=== PATIENT | female | born 1970 | race American Indian/Alaskan Native ===

== ENCOUNTER 2016-11-01 10:01 | Emergency (ER) | payer MEDICAID ==
[2016-11-01] MEDS ORDERED: ZESTRIL PO ONE (12:08)
[2016-11-01] MEDS ORDERED: DECADRON IM ONE (12:08)
[2016-11-01] MEDS ORDERED: TORADOL IM ONE (12:08)
[2016-11-01 12:37] VITALS: BP 172/97
--- NOTE | 2016-11-01 13:04 | Emergency Department Report ---
Entered by GREGORIO RINCON, acting as scribe for ROSARIO LALEN PA. Upper Extremity - HPI Chief Complaint: Shoulder Injury Stated Complaint: RT SHOULDER PAIN/REFILL BP MED Upper Extremity: Right Shoulder (pain with limited ROM) Occurred When: >5 Days (pain recurrent and occured over the few months) Mechanism: Unsure (chronic pain) Severity: severe Symptoms: Yes Pain with Movement (R shoulder), Yes Limited Range of Movement ( right shoulder), No Deformity, No Numbness, No Weakness, No Swelling, No Bruising/Ecchymosis, No Laceration or Abrasion Other History: 46 y/o female patient presents for evaluation of 810 aching right shoulder that started a few days ago while at work. She reports pain on and off for the past month. Pain is worse with movement. She is conerned she pulled a muscle. States pain is due to heavy lifting. No trauma or fall reported. Also is requsting a refill on bp meds (Lisinopril 20 mg). ED Review of Systems ROS: Stated complaint: RT SHOULDER PAIN/REFILL BP MED Other details as noted in HPI Comment: All other systems reviewed and negative Constitutional: no symptoms reported Respiratory: no symptoms reported Cardiovascular: denies: chest pain, palpitations, edema, syncope Gastrointestinal: denies: abdominal pain, nausea, vomiting Musculoskeletal: arthralgia. denies: back pain, joint swelling, myalgia Skin: denies: rash Neurological: denies: headache, weakness, numbness, paresthesias Other: All requesting medication refill Lisinopril 20 mg ED Past Medical Hx - Past Medical History Previous Medical History?: Yes Hx Hypertension: Yes Hx Diabetes: Yes - Surgical History Past Surgical History?: Yes Additional Surgical History: - Family History Family history: hypertension - Social History Smoking Status: Never Smoker Substance Use Type: Alcohol, Prescribed - Medications Home Medications: Home Medications Medication Instructions Recorded Confirmed Last Taken Type Azithromycin [Zithromax] 250 mg PO DAILY #6 tablet 06/01/16 Unknown Rx Metformin HCl [Glucophage] 1,000 mg PO BID 06/01/16 06/01/16 05/31/16 History glipiZIDE [Glucotrol] 10 mg PO BID 06/01/16 06/01/16 05/31/16 History Lisinopril [Zestril TAB] 20 mg PO QDAY #30 tablet 11/01/16 Unknown Rx methOCARBAMOL [Robaxin TAB] 500 mg PO BID #20 tab 11/01/16 Unknown Rx traMADol [Ultram] 50 mg PO Q6HR PRN #20 tablet 11/01/16 Unknown Rx Upper Extremity Exam - Exam General: Vital signs noted. No distress. Alert and acting appropriately. 46 y/.o female pti in no acute distress, well appearing. Head and Torso: No HEENT Abnormality (normal exam), No Neck Tenderness (NL EXAM) , No Chest/Lungs Abnormality (normal exam), No Abdominal Tenderness (normal exam ), No Back Tenderness (NL exam) Shoulder Exam: Yes Shoulder Tenderness (right,TTP glandular molar joint), No Clavicle Tenderness, No Normal Range of Motion in Shoulder (limited ROM to right shoulder. Due to pain), No Shoulder Deformity, No AC Joint Tenderness Arm Exam: No Arm/Humerus Tenderness, No Arm Deformity Elbow: Yes Normal Range of Motion in Elbow, No Elbow Tenderness, No Elbow Deformity Forearm: No Forearm Tenderness, No Forearm Deformity, No Pain with Pronation, No Pain with Supination Wrist: Yes Normal ROM in Wrist, No Wrist Tenderness, No Wrist Deformity, No Snuffbox Tenderness, No Pain with Axial Thumb Compression Hand: Yes Normal ROM in Digit(s), No Hand Tenderness, No Hand Deformity, No Digit Tenderness, No Digit(s) Deformity, No Tendon Dysfunction CMS Exam: Yes Normal Distal Pulses, Yes Normal Capillary Refill, Yes Normal Distal Sensation, No Broken Skin ED Course Vital Signs 11/01/16 10:08 Temperature 98.1 F Pulse Rate 88 Respiratory 16 Rate Blood Pressure 186/102 O2 Sat by Pulse 100 Oximetry - Reevaluation(s) Reevaluation #1: 11/01/16 12:54 Patient given Decadron 10 mg IM and Toradol 60 mg IM in the emergency room for right shoulder pain. ED Medical Decision Making - Medical Decision Making ED Course: She'll with arthralgia right shoulder. She says she's been having shoulder pain on and off for a while but she was doing some work around the house and aggravated her shoulder. Discussed with her that she needs to follow- up with orthopedic doctor for further imaging of her right shoulder. Patient was given Toradol 60 mg IM and Decadron 10 mg IM for shoulder pain. She was also request then refill on lisinopril for high blood pressure. Pressure was elevated in emergency room. She was given lisinopril 20 mg prior to discharge. Discharged home in stable condition with prescription for naproxen and lisinopril. Critical care attestation.: If time is entered above; I have spent that time in minutes in the direct care of this critically ill patient, excluding procedure time. ED Disposition Clinical Impression: Arthralgia of right shoulder region, Encounter for medication refill Chronic shoulder pain Qualifiers: Laterality: right Qualified Code(s): M25.511 - Pain in right shoulder; G89.29 - Other chronic pain Hypertension Qualifiers: Hypertension type: essential hypertension Qualified Code(s): I10 - Essential ( primary) hypertension Disposition: DISCHARGED TO HOME OR SELFCARE Is pt being admited?: No Does the pt Need Aspirin: No Condition: Stable Instructions: Hypertension (ED), Arthralgia (ED) Additional Instructions: Please follow up with orthopedic doctor for chronic right shoulder pain Please follow up with your primary care doctor regarding your elevated blood pressure and medication refill. If you do not have a primary care doctor, you can follow-up at this outside Medical Center for management of chronic medical problems. Prescriptions: Lisinopril [Zestril TAB] 20 mg PO QDAY #30 tablet methOCARBAMOL [Robaxin TAB] 500 mg PO BID #20 tab traMADol [Ultram] 50 mg PO Q6HR PRN #20 tablet PRN Reason: Pain Referrals: PRIMARY CARE, [Primary Care Provider] - 2-3 Days [facility] [Outside] - 2-3 Days [facility] [Other] - 3-5 Days Forms: Accompanied Note, Work/School Release Form(ED) This documentation as recorded by the SERGEY carpenter SHALANE,accurately reflects the service I personally performed and the decisions made by me,ROSARIO ALLEN PA.
== END 2016-11-01 13:08 | disposition home or self-care (01) ==
LOC: ED 10:01
DX: M25.511 Pain in right shoulder (principal); G89.29 Other chronic pain; I10 Essential (primary) hypertension; E11.9 Type 2 diabetes mellitus without complications
CPT/HCPCS: 96372; 99282; J1100; J1885

== ENCOUNTER 2017-07-01 04:12 | Emergency (ER) | payer MEDICAID ==
[2017-07-01 05:39] LABS: Hemoglobin 10.2 gm/dl (10.1-14.3); Mean Corpuscular HGB Conc 33 % (30-34); Mean Corpuscular Volume 78 fl (79-97); Platelet Count 537 K/mm3 (140-440); Red Blood Count 3.97 M/mm3 (3.65-5.03); Red Cell Distribution Width 14.3 % (13.2-15.2)
[2017-07-01 05:45] LABS: Mean Corpuscular Hemoglobin 26 pg (28-32)
[2017-07-01 06:05] LABS: Alanine Aminotransferase 17 units/L (7-56); Albumin 3.3 g/dL (3.9-5); BUN/Creatinine Ratio 13; Blood Urea Nitrogen 8 mg/dL (7-17); Calcium 8.8 mg/dL (8.4-10.2); Hemolysis Index 0
[2017-07-01 06:31] LABS: Band Neutrophils # (Manual) 0.7 K/mm3; Basophils % (Manual) 0 % (0.0-1.8); Total Cells Counted 100
[2017-07-01 06:32] LABS: Hypochromasia 1+; Platelet Estimate Appears Increased
[2017-07-01 06:59] LABS: Bilirubin,Urine NEG (Negative); Blood,Urine SM (Negative); Color,Urine Yellow (Yellow); Mucus,Urine FEW /HPF; Nitrite,Urine NEG (Negative); Urobilinogen,Urine < 2.0 mg/dL (<2.0)
[2017-07-01 20:48] VITALS: BP 147/86
[2017-07-01] MEDS ORDERED: NORCO 5/325 PO ONE (22:46)
--- NOTE | 2017-07-01 22:47 | Emergency Department Report ---
HPI - General Chief Complaint: Abdominal Pain Time Seen by Provider: 07/01/17 22:17 - HPI HPI: This is a 47-year-old female presents to the emergency department by EMS from home at about 2:30 in the morning with complaint of right lower quadrant abdominal pain. It started just prior to presentation but the patient was dealing with it intermittently over the past week. She denies any nausea, vomiting, dysuria, vaginal bleeding or discharge, fever. She has not taken anything for her symptoms prior to presentation. No recent travel or sick contacts at home. She has a past medical history of non-insulin dependent diabetes and hypertension. She has a previous surgical history of a . ED Past Medical Hx - Past Medical History Previous Medical History?: Yes Hx Hypertension: Yes Hx Diabetes: Yes - Surgical History Past Surgical History?: Yes Additional Surgical History: - Social History Smoking Status: Never Smoker Substance Use Type: None - Medications Home Medications: Home Medications Medication Instructions Recorded Confirmed Last Taken Type Azithromycin [Zithromax] 250 mg PO DAILY #6 tablet 06/01/16 Unknown Rx Metformin HCl [Glucophage] 1,000 mg PO BID 06/01/16 06/01/16 05/31/16 History glipiZIDE [Glucotrol] 10 mg PO BID 06/01/16 06/01/16 05/31/16 History Lisinopril [Zestril TAB] 20 mg PO QDAY #30 tablet 11/01/16 Unknown Rx methOCARBAMOL [Robaxin TAB] 500 mg PO BID #20 tab 11/01/16 Unknown Rx traMADol [Ultram] 50 mg PO Q6HR PRN #20 tablet 11/01/16 Unknown Rx Ciprofloxacin HCl [Cipro] 500 mg PO BID #10 tablet 07/02/17 Unknown Rx HYDROcodone/APAP 5-325 [[place] 1 each PO Q6HR PRN #10 tablet 07/02/17 Unknown Rx 5/325] Tamsulosin [Flomax] 0.4 mg PO QDAY #4 cap 07/02/17 Unknown Rx ED Review of Systems ROS: Stated complaint: ABDOMINAL PAIN Other details as noted in HPI Comment: All other systems reviewed and negative Constitutional: denies: chills, fever Eyes: denies: eye pain, eye discharge, vision change ENT: denies: ear pain, throat pain Respiratory: denies: cough, shortness of breath, wheezing Cardiovascular: denies: chest pain, palpitations Gastrointestinal: abdominal pain. denies: nausea, vomiting Genitourinary: denies: urgency, dysuria, discharge Musculoskeletal: denies: back pain, joint swelling, arthralgia Skin: denies: rash, lesions Neurological: denies: headache, weakness, paresthesias Physical Exam - Physical Exam Vital Signs: Vital Signs 07/01/17 07/01/17 05:15 20:47 Temperature 98.9 F 98.9 F Pulse Rate 93 H 89 Respiratory 17 16 Rate Blood Pressure 151/71 Blood Pressure 147/86 [Right] O2 Sat by Pulse 96 99 Oximetry Physical Exam: GENERAL: The patient is well-developed well-nourished. HENT: Normocephalic. Atraumatic. Patient has moist mucous membranes. EYES: Extraocular motions are intact. Pupils equal reactive to light bilaterally. NECK: Supple. Trachea is midline. CHEST/LUNGS: Clear to auscultation. There is no respiratory distress noted. HEART/CARDIOVASCULAR: Regular. There is no tachycardia. There is no murmur. ABDOMEN: Abdomen is soft. There is some mild right lower quadrant tenderness to palpation. No guarding or rebound tenderness. Patient has normal bowel sounds. Obese habitus. SKIN: Skin is warm and dry. NEURO: The patient is awake, alert, and oriented. The patient is cooperative. The patient has no focal neurologic deficits. The patient has normal speech and gait. MUSCULOSKELETAL: There is no tenderness or deformity. There is no limitation range of motion. There is no evidence of acute injury. ED Course Vital Signs 07/01/17 07/01/17 05:15 20:47 Temperature 98.9 F 98.9 F Pulse Rate 93 H 89 Respiratory 17 16 Rate Blood Pressure 151/71 Blood Pressure 147/86 [Right] O2 Sat by Pulse 96 99 Oximetry ED Medical Decision Making - Lab Data Result diagrams: 07/01/17 05:20 07/01/17 05:20 - Radiology Data Radiology results: report reviewed EXAM: CT ABDOMEN PELVIS W CON HISTORY: RLQ abd and flank pain TECHNIQUE: Routine axial imaging was obtained of the abdomen and pelvis following the intravenous injection of 100 cc of Omnipaque 350. Delayed axial imaging was obtained for evaluation the kidneys ureters and bladder. Sagittal coronal reconstructions were reviewed. FINDINGS: The lung bases reveal nonspecific interstitial prominence bilaterally. There are no localized infiltrates or effusions. The liver, gallbladder, pancreas, and spleen appear normal. The adrenal glands appear normal. The kidneys reveal [id number]-darenmuk right-sided hydronephrosis secondary to a partially obstructing stone in the mid right ureter measuring 3.6 mm in diameter and 6.5 mm in cephalocaudal length. There are no additional renal stones. The appendix appears normal. The bowel loops are normal in caliber and course. The vascular structures enhance normally. The uterus and bladder appear normal. Free fluid is not seen. The skeletal structures reveal arthritic changes involving both SI joints. IMPRESSION: Zesv-[id number] right-sided hydronephrosis secondary to a partially obstructing stone in the mid right ureter measuring 3.6 mm in diameter and 6.5 mm in cephalocaudal length. Normal appendix. Normal-appearing gallbladder and biliary tree. Non specific interstitial changes in both lung bases. No localized infiltrates or effusions. Arthritic changes of both SI joints. Transcribed By: RB Dictated By: CHAD CARREON MD Electronically Authenticated By: CHAD CARREON MD Signed Date/Time: 07/01/172045 - Medical Decision Making Patient was found to have a right mid ureter stone with partial obstruction with mild to moderate hydronephrosis. The diameter of the stone is about 3.5 mm. The dimension of 6.5 mm is superior to inferior and should have less of an impact on its ability to pass. The rest the labs are unremarkable including there is no urinary tract infection or any signs of renal deficiency. No leukocytosis. Vital signs stable including being afebrile. She does have some hyperglycemia that was down to about 290 prior to getting 4 units of regular insulin subcutaneously. The patient should be down into the lower 200s. She does not have an elevated anion gap and therefore does not appear to be in diabetic ketoacidosis. The patient will be discharged home with a strainer, Flomax, Cipro empirically, and some pain medication. She has a good chance of passing this stone but understands that she will need to return to the emergency department with any development of fever, worsening of her pain, inability urinate or development of fever. Otherwise she has been given a referral for urology. - Differential Diagnosis appendicitis, nephrolithiasis, colitis Critical Care Time: No Critical care attestation.: If time is entered above; I have spent that time in minutes in the direct care of this critically ill patient, excluding procedure time. ED Disposition Clinical Impression: Right flank pain, Nephrolithiasis, Hyperglycemia Abdominal pain Qualifiers: Abdominal location: right lower quadrant Qualified Code(s): R10.31 - Right lower quadrant pain Hydronephrosis Qualifiers: Hydronephrosis type: with ureteral calculous obstruction Qualified Code(s): N13.2 - Hydronephrosis with renal and ureteral calculous obstruction Disposition: TO HOME OR SELFCARE Is pt being admited?: No Condition: Stable Instructions: Kidney Stones (ED), Renal Colic (ED), How to Strain Your Urine ( ED), Abdominal Pain (ED) Additional Instructions: Please follow up with a urologist in the next few days if possible. I have given you a referral for a local urologist, Dr. Salas. Strain your urine each time you go to see if you have passed the kidney stone. Return to the emergency Department with any worsening of your discomfort, development of fever or nausea/vomiting, or with any acute distress. Try and stay away from foods that are high in sugar, carbohydrates and starches to help with your blood sugar. Blood sugar log. You have been prescribed a medication that is sedating and therefore should not be taken prior to driving, working, and responsible for children and in no way should be mixed with alcohol of any quantity. Prescriptions: Ciprofloxacin HCl [Cipro] 500 mg PO BID #10 tablet HYDROcodone/APAP 5-325 [[place] 5/325] 1 each PO Q6HR PRN #10 tablet PRN Reason: Pain Tamsulosin [Flomax] 0.4 mg PO QDAY #4 cap Referrals: KELSEA SALAS MD [Staff Physician] - [place] Time of Disposition: :
--- NOTE | 2017-07-02 00:49 | Cat Scan Report ---
FINAL REPORT EXAM: CT ABDOMEN PELVIS W CON HISTORY: RLQ abd and flank pain TECHNIQUE: Routine axial imaging was obtained of the abdomen and pelvis following the intravenous injection of 100 cc of Omnipaque 350. Delayed axial imaging was obtained for evaluation the kidneys ureters and bladder. Sagittal coronal reconstructions were reviewed. FINDINGS: The lung bases reveal nonspecific interstitial prominence bilaterally. There are no localized infiltrates or effusions. The liver, gallbladder, pancreas, and spleen appear normal. The adrenal glands appear normal. The kidneys reveal mtyn-ni-pkycyazt right-sided hydronephrosis secondary to a partially obstructing stone in the mid right ureter measuring 3.6 mm in diameter and 6.5 mm in cephalocaudal length. There are no additional renal stones. The appendix appears normal. The bowel loops are normal in caliber and course. The vascular structures enhance normally. The uterus and bladder appear normal. Free fluid is not seen. The skeletal structures reveal arthritic changes involving both SI joints. IMPRESSION: Vqcf-dv-hqjfprxe right-sided hydronephrosis secondary to a partially obstructing stone in the mid right ureter measuring 3.6 mm in diameter and 6.5 mm in cephalocaudal length. Normal appendix. Normal-appearing gallbladder and biliary tree. Non specific interstitial changes in both lung bases. No localized infiltrates or effusions. Arthritic changes of both SI joints.
[2017-07-02] MEDS ORDERED: FLOMAX PO ONE (01:20)
== END 2017-07-02 01:50 | disposition home or self-care (01) ==
LOC: ED 04:12
DX: N13.2 Hydronephrosis with renal and ureteral calculous obstruction (principal); R10.31 Right lower quadrant pain; E11.65 Type 2 diabetes mellitus with hyperglycemia; I10 Essential (primary) hypertension; E11.9 Type 2 diabetes mellitus without complications
CPT/HCPCS: 36415; 74177; 80053; 81001; 82962; 84703; 85007; 85025; 96372; 99284; Q9967; J1815

== ENCOUNTER 2020-02-26 05:48 | Emergency (ER) | payer SELFPAY ==
[2020-02-26 06:09] VITALS: BP 179/96
--- NOTE | 2020-02-26 08:16 | Emergency Department Report ---
ED Rash HPI - HPI Chief Complaint: Skin Rash Stated Complaint: MUSCLE PAIN Time Seen by Provider: 02/26/20 08:08 Duration: 1 week Location: Chest (Under both breasts), Abdomen (Under abdominal fold) Rash Symptoms: Yes Itching Severity: moderate Other History: 49-year-old -Japanese female presents to the emergency room stating she has a itchy rash under both breasts both groin and buttocks x1 week. Patient does admit to have a history of diabetes and has not seen her primary care doctor in quite a while as well as have a A1c. Patient denies any fever chills no nausea no vomiting no discharge just red and irritated and itchy. ED Review of Systems ROS: Stated complaint: MUSCLE PAIN Other details as noted in HPI ED Past Medical Hx - Past Medical History Previous Medical History?: Yes Hx Hypertension: Yes Hx Diabetes: Yes - Surgical History Past Surgical History?: Yes Additional Surgical History: - Social History Smoking Status: Never Smoker Substance Use Type: None - Medications Home Medications: Home Medications Medication Instructions Recorded Confirmed Last Taken Type Azithromycin [Zithromax] 250 mg PO DAILY #6 tablet 06/01/16 Unknown Rx Metformin HCl [Glucophage] 1,000 mg PO BID 06/01/16 06/01/16 05/31/16 History glipiZIDE [Glucotrol] 10 mg PO BID 06/01/16 06/01/16 05/31/16 History lisinopriL [Zestril TAB] 20 mg PO QDAY #30 tablet 11/01/16 Unknown Rx methOCARBAMOL [Robaxin TAB] 500 mg PO BID #20 tab 11/01/16 Unknown Rx traMADoL [Ultram] 50 mg PO Q6HR PRN #20 tablet 11/01/16 Unknown Rx Ciprofloxacin HCl [Cipro] 500 mg PO BID #10 tablet 07/02/17 Unknown Rx HYDROcodone/APAP 5-325 [[place] 1 each PO Q6HR PRN #10 tablet 07/02/17 Unknown Rx 5/325] Tamsulosin [Flomax] 0.4 mg PO QDAY #4 cap 07/02/17 Unknown Rx Ciclopirox 0.77% (Nf) [Loprox 1 applic TP BID #45 gm 10/29/19 Unknown Rx 0.77% (Nf)] cephALEXin [Keflex] 500 mg PO Q8HR #30 cap 10/29/19 Unknown Rx Nystatin Cream [Mycostatin Cream] 1 applic TP TID #2 tube 02/26/20 Unknown Rx Rash Exam - Exam General: Vital signs noted. No distress. Alert and acting appropriately. HEENT: No Periorbital Edema, No Conjuctival Injection, No Chemosis, No Perioral Edema, No Tongue Edema, No Uvular Edema, No Compromised Airway, No Drooling Lungs: Yes Good Air Exchange (Normal Breath Sounds), No Wheezes, No Ronchi, No Stridor, No Cough, No Labored Respirations, No Retractions, No Use of Accessory Muscles, No Other Abnormal Lung Sounds Skin: Yes Weeping, Yes Erythema, Yes Other (Erythematous rash under both breasts that has a demarcated edges as well as pannus and perianal. Rash has an odor of yeast.) ED Course Vital Signs 02/26/20 06:02 Temperature 98.5 F Pulse Rate 110 H Respiratory 20 Rate Blood Pressure 179/96 O2 Sat by Pulse 98 Oximetry ED Medical Decision Making - Medical Decision Making 49-year-old -Japanese female presents to the emergency room stating she has a itchy rash under both breasts both groin and buttocks x1 week. Patient does admit to have a history of diabetes and has not seen her primary care doctor in quite a while as well as have a A1c. Patient denies any fever chills no nausea no vomiting no discharge just red and irritated and itchy. Patient appears to have a tinea under both rash groin and perianal area. Discussed with patient to watch her carbohydrates use the nystatin cream follow-up with a primary care provider or topper press operator automatic. Patient verbalized understanding. Critical care attestation.: If time is entered above; I have spent that time in minutes in the direct care of this critically ill patient, excluding procedure time. ED Disposition Clinical Impression: Tinea, Tinea of groin, Tinea of perianal region, Diabetes 1.5, managed as type 2, Severely overweight Disposition: DC-01 TO HOME OR SELFCARE Is pt being admited?: No Does the pt Need Aspirin: No Condition: Stable Instructions: Diabetes Mellitus Type 2 in Adults (ED), Obesity (ED) Additional Instructions: Please use the cream with good thins for him under breasts groin and anal area. It is very important for you to follow-up with your primary care provider to have an assessment of your diabetes overall management. Please follow a ADA diet of low carbs increase your water intake exercise. Prescriptions: Nystatin Cream [Mycostatin Cream] 1 applic TP TID #2 tube Referrals: PRIMARY CARE, [Primary Care Provider] - 3-5 Days [facility] [Outside] - 3-5 Days Forms: Work/School Release Form(ED)
== END 2020-02-26 08:56 | disposition home or self-care (01) ==
LOC: ED 05:48
DX: B35.8 Other dermatophytoses (principal); E11.69 Type 2 diabetes mellitus with other specified complication; E66.3 Overweight; I10 Essential (primary) hypertension; Z79.899 Other long term (current) drug therapy
CPT/HCPCS: 99281

== ENCOUNTER 2020-08-14 12:31 | Emergency (ER) | payer SELFPAY ==
[2020-08-14] MEDS ORDERED: IBUPROFEN 800 MG TAB PO ONE (14:34)
--- NOTE | 2020-08-14 14:38 | Event Note ---
ED Screening Note Date of service: 08/14/20 Time: 14:37 ED Screening Note: Patient complains of right hand pain x1 month, worsening over the past week-she denies injury; admits to heavy lifting She also complains of left-sided neck pain radiating into her ear for the past week Pain with movement of the neck per patient Denies fever/chills/sweats or injury This initial assessment/diagnostic orders/clinical plan/treatment(s) is/are subject to change based on patients health status, clinical progression and re- assessment by fellow clinical providers in the ED. Further treatment and workup at subsequent clinical providers discretion. Patient/guardian urged not to elope from the ED as their condition may be serious if not clinically assessed and managed. Initial orders include: labs xr
--- NOTE | 2020-08-14 15:00 | XRay Report ---
RIGHT HAND 3 VIEW(S) INDICATION / CLINICAL INFORMATION: pain, no injury, worse near 1st MC and lateral wr COMPARISON: None available. FINDINGS: BONES / JOINT(S): No acute fracture or subluxation. 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 SOFT TISSUES: No significant abnormality. ADDITIONAL FINDINGS: None. 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 No acute pr ocess. Signer Name: Cal Durand MD Signed: 08/14/2020 2:55 PM Workstation Name: [id number]
[2020-08-14 15:13] LABS: Basophils # (Auto) 0.1 K/mm3 (0.0-0.1); Basophils % (Auto) 0.8 % (0.0-1.8); Eosinophils # (Auto) 0.2 K/mm3 (0.0-0.4); Eosinophils % (Auto) 2.5 % (0.0-4.3); Hematocrit 37.8 % (30.3-42.9); Hemoglobin 12.5 gm/dl (10.1-14.3); Lymphocytes # (Auto) 2.8 K/mm3 (1.2-5.4); Lymphocytes % (Auto) 35.5 % (13.4-35.0); Mean Corpuscular HGB Conc 33 % (30-34); Mean Corpuscular Volume 80 fl (79-97); Monocytes # (Auto) 0.5 K/mm3 (0.0-0.8); Monocytes % (Auto) 6.1 % (0.0-7.3); Platelet Count 492 K/mm3 (140-440); Red Blood Count 4.72 M/mm3 (3.65-5.03); Red Cell Distribution Width 14.2 % (13.2-15.2)
[2020-08-14 15:30] LABS: Alanine Aminotransferase 13 units/L (7-56); Albumin 4.5 g/dL (3.9-5); Blood Urea Nitrogen 8 mg/dL (7-17); Calcium 9.7 mg/dL (8.4-10.2); Hemolysis Index 23
[2020-08-14 15:31] LABS: BUN/Creatinine Ratio 13
[2020-08-14] MEDS ORDERED: INSULIN REGULAR, HUMAN 100 UNITS/1 ML IV ONE (16:04)
[2020-08-14] MEDS ORDERED: SODIUM CHLORIDE 0.9% 1000 ML 1,000 ML IV ONE (16:04)
--- NOTE | 2020-08-14 16:57 | Emergency Department Report ---
ED Neck Pain/Injury HPI - General Chief Complaint: Earache Stated Complaint: LEFT EAR HURTING, RIGHT WRIST PAIN Time Seen by Provider: 08/14/20 13:01 Mode of arrival: Ambulatory Limitations: No Limitations - History of Present Illness Initial Comments: This is a 50-year-old female nontoxic, well nourished in appearance, no acute signs of distress presents to the ED with c/o of acute on chronic left upper neck pain times several days. Patient also stated has acute on chronic intermittent right hand pain. Patient stated that the past 2 days she was heavy lifting at work and developed this pain. Patient denies any radiation of pain. Denies any decreased range of motion or abnormal gait. Denies any joint swelling or redness. Patient denies any injuries or trauma. Denies any bladder or bowel instability. Patient denies any urinary symptoms. Denies any fever, chills, nausea, vomiting, headache, stiff neck, chest pain or shortness of breath. Patient denies any numbness or tingling. Patient stated allergies to Flexeril and gabapentin. Past medical history includes diabetes which she stated has not been taking Metformin 500 mg BID for several months. MD Complaint: upper back pain -: days(s) Place: work Severity: mild Severity scale (0 -10): 8 Quality: aching Consistency: intermittent Improves With: rest supine Worsens With: movement of extremity, movement of neck Associated Symptoms: none. denies: headache, fever, numbness, tingling, weakness, vertigo, difficulty walking, swollen glands, difficulty swallowing, nausea, vomiting Treatments Prior to Arrival: none - Related Data Home Medications Medication Instructions Recorded Confirmed Last Taken Metformin HCl [Glucophage] 1,000 mg PO BID 06/01/16 06/01/16 05/31/16 glipiZIDE [Glucotrol] 10 mg PO BID 06/01/16 06/01/16 05/31/16 Previous Rx's Medication Instructions Recorded Last Taken Type Azithromycin [Zithromax] 250 mg PO DAILY #6 tablet 06/01/16 Unknown Rx lisinopriL [Zestril TAB] 20 mg PO QDAY #30 tablet 11/01/16 Unknown Rx traMADoL [Ultram] 50 mg PO Q6HR PRN #20 tablet 11/01/16 Unknown Rx Ciprofloxacin HCl [Cipro] 500 mg PO BID #10 tablet 07/02/17 Unknown Rx HYDROcodone/APAP 5-325 [[place] 1 each PO Q6HR PRN #10 tablet 07/02/17 Unknown Rx 5/325] Tamsulosin [Flomax] 0.4 mg PO QDAY #4 cap 07/02/17 Unknown Rx Ciclopirox 0.77% (Nf) [Loprox 1 applic TP BID #45 gm 10/29/19 Unknown Rx 0.77% (Nf)] cephALEXin [Keflex] 500 mg PO Q8HR #30 cap 10/29/19 Unknown Rx Nystatin Cream [Mycostatin Cream] 1 applic TP TID #2 tube 02/26/20 Unknown Rx Naproxen 500 mg PO Q12H PRN #12 tablet 08/14/20 Unknown Rx metFORMIN [Glucophage] 500 mg PO BID #60 tablet 08/14/20 Unknown Rx methOCARBAMOL [Robaxin TAB] 500 mg PO BID PRN #12 tab 08/14/20 Unknown Rx Allergies Allergy/AdvReac Type Severity Reaction Status Date / Time cyclobenzaprine HCl Allergy Hives Verified 10/29/19 15:41 [From Flexeril] gabapentin Allergy Hives Verified 10/29/19 15:41 ED Review of Systems ROS: Stated complaint: LEFT EAR HURTING, RIGHT WRIST PAIN Other details as noted in HPI Comment: All other systems reviewed and negative Constitutional: denies: chills, fever Eyes: denies: eye pain, eye discharge, vision change ENT: denies: ear pain, throat pain Respiratory: denies: cough, shortness of breath, wheezing Cardiovascular: denies: chest pain, palpitations Endocrine: no symptoms reported Gastrointestinal: denies: abdominal pain, nausea, vomiting, diarrhea, constipation, hematemesis, melena, hematochezia Genitourinary: denies: urgency, dysuria, discharge Musculoskeletal: other (neck pains/right hand pains). denies: back pain, joint swelling, arthralgia Skin: denies: rash, lesions Neurological: denies: headache, weakness, paresthesias Psychiatric: denies: anxiety, depression Hematological/Lymphatic: denies: easy bleeding, easy bruising ED Past Medical Hx - Past Medical History Previous Medical History?: Yes Hx Hypertension: Yes Hx Diabetes: Yes - Surgical History Past Surgical History?: Yes Additional Surgical History: - Social History Smoking Status: Never Smoker Substance Use Type: Alcohol - Medications Home Medications: Home Medications Medication Instructions Recorded Confirmed Last Taken Type Azithromycin [Zithromax] 250 mg PO DAILY #6 tablet 06/01/16 Unknown Rx Metformin HCl [Glucophage] 1,000 mg PO BID 06/01/16 06/01/16 05/31/16 History glipiZIDE [Glucotrol] 10 mg PO BID 06/01/16 06/01/16 05/31/16 History lisinopriL [Zestril TAB] 20 mg PO QDAY #30 tablet 11/01/16 Unknown Rx traMADoL [Ultram] 50 mg PO Q6HR PRN #20 tablet 11/01/16 Unknown Rx Ciprofloxacin HCl [Cipro] 500 mg PO BID #10 tablet 07/02/17 Unknown Rx HYDROcodone/APAP 5-325 [[place] 1 each PO Q6HR PRN #10 tablet 07/02/17 Unknown Rx 5/325] Tamsulosin [Flomax] 0.4 mg PO QDAY #4 cap 07/02/17 Unknown Rx Ciclopirox 0.77% (Nf) [Loprox 1 applic TP BID #45 gm 10/29/19 Unknown Rx 0.77% (Nf)] cephALEXin [Keflex] 500 mg PO Q8HR #30 cap 10/29/19 Unknown Rx Nystatin Cream [Mycostatin Cream] 1 applic TP TID #2 tube 02/26/20 Unknown Rx Naproxen 500 mg PO Q12H PRN #12 tablet 08/14/20 Unknown Rx metFORMIN [Glucophage] 500 mg PO BID #60 tablet 08/14/20 Unknown Rx methOCARBAMOL [Robaxin TAB] 500 mg PO BID PRN #12 tab 08/14/20 Unknown Rx ED Physical Exam - General Limitations: No Limitations General appearance: alert, in no apparent distress - Head Head exam: Present: atraumatic, normocephalic - Eye Eye exam: Present: normal appearance - Neck Neck exam: Present: normal inspection, full ROM, other (Negative Brudzinski sign). Absent: tenderness, meningismus, lymphadenopathy - Respiratory Respiratory exam: Present: normal lung sounds bilaterally. Absent: respiratory distress, wheezes, rales, rhonchi, stridor, chest wall tenderness, accessory muscle use, decreased breath sounds, prolonged expiratory - Cardiovascular Cardiovascular Exam: Present: regular rate, normal rhythm, normal heart sounds. Absent: irregular rhythm, systolic murmur, diastolic murmur, rubs, gallop - Extremities Exam Extremities exam: Present: normal inspection, full ROM, normal capillary refill. Absent: tenderness, joint swelling - Expanded Upper Extremity Exam Right General: Present: normal inspection Shoulder Exam: Present: normal inspection, full ROM. Absent: tenderness, swelling Upper Arm exam: Present: normal inspection, full ROM. Absent: tenderness, swelling Elbow exam: Present: normal inspection, full ROM. Absent: tenderness, swelling Forearm Wrist exam: Present: normal inspection, full ROM. Absent: tenderness, swelling, abrasion, laceration, ecchymosis, deformity, crepidus, dislocation, erythema, tenderness over anatomical snuff box, pain with axial thumb loading Hand Wrist exam: Present: normal inspection, full ROM. Absent: tenderness, swelling, abrasion, laceration, ecchymosis, deformity, crepidus, dislocation, erythema, amputation, nail avulsion, subungual hematoma Vascular: Present: normal capillary refill. Absent: vascular compromise (Neurovascular within normal limits) - Back Exam Back exam: Present: normal inspection, full ROM, paraspinal tenderness (Left lateral cervical paraspinal). Absent: tenderness, CVA tenderness (R), CVA tenderness (L), muscle spasm, vertebral tenderness, rash noted - Expanded Back Exam Expanded Back exam: Absent: saddle anesthesia Back exam: Negative Straight Leg Raising: Right, Left - Neurological Exam Neurological exam: Present: alert, oriented X3, normal gait - Psychiatric Psychiatric exam: Present: normal affect, normal mood - Skin Skin exam: Present: warm, dry, intact, normal color. Absent: rash ED Course Vital Signs 08/14/20 08/14/20 08/14/20 13:35 15:08 16:08 Temperature 98 F Pulse Rate 96 H Respiratory 18 18 18 Rate Blood Pressure 151/69 O2 Sat by Pulse 100 Oximetry 08/14/20 17:41 Temperature Pulse Rate Respiratory 18 Rate Blood Pressure O2 Sat by Pulse 99 Oximetry - Reevaluation(s) Reevaluation #1: 08/14/20 16:59 Patient is speaking in full sentences with no signs of distress noted. ED Medical Decision Making - Lab Data Result diagrams: 08/14/20 14:58 08/14/20 14:58 Lab Results 08/14/20 08/14/20 Range/Units 14:58 14:58 WBC 7.8 (4.5-11.0) K/mm3 RBC 4.72 (3.65-5.03) M/mm3 Hgb 12.5 (10.1-14.3) gm/dl Hct 37.8 (30.3-42.9) % MCV 80 (79-97) fl MCH 27 L (28-32) pg MCHC 33 (30-34) % RDW 14.2 (13.2-15.2) % Plt Count 492 H (140-440) K/mm3 Lymph % (Auto) 35.5 H (13.4-35.0) % Bradley % (Auto) 6.1 (0.0-7.3) % Eos % (Auto) 2.5 (0.0-4.3) % Baso % (Auto) 0.8 (0.0-1.8) % Lymph # (Auto) 2.8 (1.2-5.4) K/mm3 Bradley # (Auto) 0.5 (0.0-0.8) K/mm3 Eos # (Auto) 0.2 (0.0-0.4) K/mm3 Baso # (Auto) 0.1 (0.0-0.1) K/mm3 Seg Neutrophils % 55.1 (40.0-70.0) % Seg Neutrophils # 4.3 (1.8-7.7) K/mm3 Sodium 133 L (137-145) mmol/L Potassium 4.2 (3.6-5.0) mmol/L Chloride 93.9 L (98-107) mmol/L Carbon Dioxide 30 (22-30) mmol/L Anion Gap 13 mmol/L BUN 8 (7-17) mg/dL Creatinine 0.6 (0.6-1.2) mg/dL Estimated GFR > 60 ml/min BUN/Creatinine Ratio 13 % Glucose 390 H (65-100) mg/dL Calcium 9.7 (8.4-10.2) mg/dL Total Bilirubin 0.20 (0.1-1.2) mg/dL AST 16 (5-40) units/L ALT 13 (7-56) units/L Alkaline Phosphatase 113 (35-129) units/L Total Protein 8.0 (6.3-8.2) g/dL Albumin 4.5 (3.9-5) g/dL Albumin/Globulin Ratio 1.3 % - Radiology Data RIGHT HAND 3 VIEW(S) INDICATION / CLINICAL INFORMATION: pain, no injury, worse near 1st MC and lateral wr COMPARISON: None available. FINDINGS: BONES / JOINT(S): No acute fracture or subluxation. 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 SOFT TISSUES: No significant abnormality. ADDITIONAL FINDINGS: None. 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 No acute process. Signer Name: Cal Durand MD Signed: 08/14/2020 1:55 PM Workstation Name: [id number] - Medical Decision Making This is a 50-year-old female that presents with right hand and upper back strain. Patient is stable was examined by me. There is no spinal tenderness. There is no cauda equina syndrome during examination. No bladder or bowel instability. Patient received Motrin in the ED which stated that her symptoms has resolved and subsided. Patient has glucose 390s so patient received 1 L normal saline and insulin. Fingerstick glucose has decreased to 248 prior to discharge. Educated patient of hyperglycemia and diabetes and importance of taking Metformin with diet/lifestyle modification. Patient is discharged with Naproxen. Patient was referred to Follow-up with a primary care doctor in 3-5 days or if symptoms worsen and continue return to emergency room as soon as possible. At time of discharge, the patient does not seem toxic or ill in appearance. No acute signs of distress noted. Patient agrees to discharge treatment plan of care. No further questions noted by the patient. This chart is dictated with using [employer] Critical care attestation.: If time is entered above; I have spent that time in minutes in the direct care of this critically ill patient, excluding procedure time. ED Disposition Clinical Impression: History of medication noncompliance Neck muscle strain Qualifiers: Encounter type: initial encounter Qualified Code(s): S16.1XXA - Strain of muscle, fascia and tendon at neck level, initial encounter Strain of right hand Qualifiers: Encounter type: initial encounter Qualified Code(s): S66.911A - Strain of unspecified muscle, fascia and tendon at wrist and hand level, right hand, initial encounter Diabetes mellitus Qualifiers: Diabetes mellitus type: type 2 Diabetes mellitus clinical team lead insulin use: without clinical team lead use Diabetes mellitus complication status: without complication Qualified Code(s): E11.9 - Type 2 diabetes mellitus without complications Disposition: TO HOME OR SELFCARE Is pt being admited?: No Does the pt Need Aspirin: No Condition: Stable Instructions: Type 2 Diabetes Mellitus, Diagnosis, Adult, Glyburide; Metformin tablets, Diabetes Mellitus Type 2 in Adults (ED) Additional Instructions: Follow-up with a primary care doctor in 3-5 days or if symptoms worsen and continue return to emergency room as soon as possible. Prescriptions: metFORMIN [Glucophage] 500 mg PO BID #60 tablet Naproxen 500 mg PO Q12H PRN #12 tablet PRN Reason: Pain , Severe (7-10) methOCARBAMOL [Robaxin TAB] 500 mg PO BID PRN #12 tab PRN Reason: Muscle Spasm Referrals: PRIMARY MD ERIN [Primary Care Provider] - 3-5 Days BRISEIDA GREEN MD [Staff Physician] - 3-5 Days [facility] [Provider Group] - 3-5 Days [facility] [Outside] - 3-5 Days Time of Disposition: 17:45
[2020-08-14 18:09] VITALS: BP 156/80
== END 2020-08-14 18:10 | disposition home or self-care (01) ==
LOC: ED 12:31
DX: S16.1XXA Strain of muscle, fascia and tendon at neck level, initial encounter (principal); S66.911A Strain of unspecified muscle, fascia and tendon at wrist and hand level, right hand, initial encounter; I10 Essential (primary) hypertension; E11.9 Type 2 diabetes mellitus without complications; Z79.899 Other long term (current) drug therapy; Z88.8 Allergy status to other drugs, medicaments and biological substances; X50.0XXA Overexertion from strenuous movement or load, initial encounter; Y93.89 Activity, other specified; Y92.89 Other specified places as the place of occurrence of the external cause; Y99.8 Other external cause status
CPT/HCPCS: 36415; 73130; 80053; 82962; 85025; 96361; 96374; 99284; J7030; J1815

== ENCOUNTER 2021-12-21 10:32 | Emergency (ER) | payer SELFPAY ==
--- NOTE | 2021-12-21 12:07 | XRay Report ---
CHEST 2 VIEWS INDICATION / CLINICAL INFORMATION: cough STUDY TIME: 1155 COMPARISON: None available. FINDINGS: SUPPORT DEVICES: None. HEART / MEDIASTINUM: No significant abnormality. LUNGS / PLEURA: No significant acute pulmonary or pleural abnormality. No pneumothorax. ADDITIONAL FINDINGS: No significant additional findings. Signer Name: Eugenio Larose MD Signed: 12/21/2021 12:03 PM Workstation Name: [id number]
--- NOTE | 2021-12-21 13:01 | Emergency Department Report ---
- General Chief Complaint: Upper Respiratory Infection Stated Complaint: R SHOULDER AND SIDE PAIN CHEST PAIN WHEN COUGH Time Seen by Provider: 12/21/21 10:53 Source: patient Mode of arrival: Ambulatory Limitations: No Limitations - History of Present Illness Initial Comments: This is a 51-year-old female nontoxic, well nourished in appearance, no acute signs of distress presents to the ED with c/o of productive cough, rhinorrhea, nasal congestion x several days. Patient describes productive cough as yellow mucus production. Patient denies any sick contacts. Patient denies any recent travels, long car, recent hospital stays. Patient denies any calf pain or calf tenderness. Patient denies any chest pain, short of breath, fever, chills, nausea, vomiting, hemoptysis, numbness, tingling, headache or stiff neck. MD Complaint: cough, rhinorrhea, nasal congestion -: days(s) Severity: mild Severity scale (0 -10): 0 Consistency: constant Improves With: nothing Worsens With: nothing Associated Symptoms: rhinorrhea, nasal congestion, cough. denies: fever, chills, myalgias, diaphoresis, headache, sore throat, stiff neck, chest pain, shortness of breath, abdominal pain, nausea, vomiting, diarrhea, dysuria, rash, confusion, right sweats, weight loss, epistaxis, hoarseness, ear pain Treatments Prior to Arrival: none - Related Data Home Medications Medication Instructions Recorded Confirmed Last Taken Metformin HCl [Glucophage] 1,000 mg PO BID 06/01/16 06/01/16 05/31/16 glipiZIDE [Glucotrol] 10 mg PO BID 06/01/16 06/01/16 05/31/16 Previous Rx's Medication Instructions Recorded Last Taken Type Azithromycin [Zithromax] 250 mg PO DAILY #6 tablet 06/01/16 Unknown Rx lisinopriL [Zestril TAB] 20 mg PO QDAY #30 tablet 11/01/16 Unknown Rx traMADoL [Ultram] 50 mg PO Q6HR PRN #20 tablet 11/01/16 Unknown Rx Ciprofloxacin HCl [Cipro] 500 mg PO BID #10 tablet 07/02/17 Unknown Rx HYDROcodone/APAP 5-325 [[place] 1 each PO Q6HR PRN #10 tablet 07/02/17 Unknown Rx 5/325] Tamsulosin [Flomax] 0.4 mg PO QDAY #4 cap 07/02/17 Unknown Rx Ciclopirox 0.77% (Nf) [Loprox 1 applic TP BID #45 gm 10/29/19 Unknown Rx 0.77% (Nf)] cephALEXin [Keflex] 500 mg PO Q8HR #30 cap 10/29/19 Unknown Rx Nystatin Cream [Mycostatin Cream] 1 applic TP TID #2 tube 02/26/20 Unknown Rx Naproxen 500 mg PO Q12H PRN #12 tablet 08/14/20 Unknown Rx metFORMIN [Glucophage] 500 mg PO BID #60 tablet 08/14/20 Unknown Rx methOCARBAMOL [Robaxin TAB] 500 mg PO BID PRN #12 tab 08/14/20 Unknown Rx Benzonatate [Tessalon Perles] 100 mg PO Q8HR PRN #12 tab 12/21/21 Unknown Rx Allergies Allergy/AdvReac Type Severity Reaction Status Date / Time cyclobenzaprine HCl Allergy Hives Verified 12/21/21 11:01 [From Flexeril] gabapentin Allergy Hives Verified 12/21/21 11:01 ED Review of Systems ROS: Stated complaint: R SHOULDER AND SIDE PAIN CHEST PAIN WHEN COUGH Other details as noted in HPI Constitutional: denies: chills, fever Eyes: denies: eye pain, eye discharge, vision change ENT: congestion. denies: ear pain, throat pain Respiratory: cough. denies: shortness of breath, wheezing Cardiovascular: denies: chest pain, palpitations Endocrine: no symptoms reported Gastrointestinal: denies: abdominal pain, nausea, diarrhea Genitourinary: denies: urgency, dysuria, discharge Musculoskeletal: denies: back pain, joint swelling, arthralgia Skin: denies: rash, lesions Neurological: denies: headache, weakness, paresthesias Psychiatric: denies: anxiety, depression Hematological/Lymphatic: denies: easy bleeding, easy bruising ED Past Medical Hx - Past Medical History Hx Hypertension: Yes Hx Diabetes: Yes - Surgical History Additional Surgical History: - Social History Smoking Status: Never Smoker Substance Use Type: None - Medications Home Medications: Home Medications Medication Instructions Recorded Confirmed Last Taken Type Azithromycin [Zithromax] 250 mg PO DAILY #6 tablet 06/01/16 Unknown Rx Metformin HCl [Glucophage] 1,000 mg PO BID 1206/01/16 05/31/16 History glipiZIDE [Glucotrol] 10 mg PO BID 06/01/16 06/01/16 05/31/16 History lisinopriL [Zestril TAB] 20 mg PO QDAY #30 tablet 11/01/16 Unknown Rx traMADoL [Ultram] 50 mg PO Q6HR PRN #20 tablet 11/01/16 Unknown Rx Ciprofloxacin HCl [Cipro] 500 mg PO BID #10 tablet 07/02/17 Unknown Rx HYDROcodone/APAP 5-325 [[place] 1 each PO Q6HR PRN #10 tablet 07/02/17 Unknown Rx 5/325] Tamsulosin [Flomax] 0.4 mg PO QDAY #4 cap 07/02/17 Unknown Rx Ciclopirox 0.77% (Nf) [Loprox 1 applic TP BID #45 gm 10/29/19 Unknown Rx 0.77% (Nf)] cephALEXin [Keflex] 500 mg PO Q8HR #30 cap 10/29/19 Unknown Rx Nystatin Cream [Mycostatin Cream] 1 applic TP TID #2 tube 02/26/20 Unknown Rx Naproxen 500 mg PO Q12H PRN #12 tablet 08/14/20 Unknown Rx metFORMIN [Glucophage] 500 mg PO BID #60 tablet 08/14/20 Unknown Rx methOCARBAMOL [Robaxin TAB] 500 mg PO BID PRN #12 tab 08/14/20 Unknown Rx Benzonatate [Tessalon Perles] 100 mg PO Q8HR PRN #12 tab 12/21/21 Unknown Rx ED Physical Exam - General Limitations: No Limitations General appearance: alert, in no apparent distress - Head Head exam: Present: atraumatic, normocephalic - Eye Eye exam: Present: normal appearance - ENT ENT exam: Present: normal exam, normal orophraynx - Neck Neck exam: Present: normal inspection, full ROM. Absent: tenderness, meningismus, lymphadenopathy - Respiratory Respiratory exam: Present: normal lung sounds bilaterally. Absent: respiratory distress, wheezes, rales, rhonchi, stridor, chest wall tenderness, accessory muscle use, decreased breath sounds, prolonged expiratory - Cardiovascular Cardiovascular Exam: Present: regular rate, normal rhythm, normal heart sounds. Absent: bradycardia, tachycardia, irregular rhythm, systolic murmur, diastolic murmur, rubs, gallop - Extremities Exam Extremities exam: Present: full ROM - Back Exam Back exam: Present: full ROM - Neurological Exam Neurological exam: Present: alert, oriented X3, normal gait - Psychiatric Psychiatric exam: Present: normal affect, normal mood - Skin Skin exam: Present: warm, dry, intact, normal color. Absent: rash ED Course Vital Signs 12/21/21 10:53 Temperature 98.7 F Pulse Rate 84 Respiratory 18 Rate Blood Pressure 139/69 [Right] O2 Sat by Pulse 99 Oximetry - Reevaluation(s) Reevaluation #1: 12/21/21 13:00 Patient is speaking in full sentences with no signs of distress noted. ED Medical Decision Making - Radiology Data [facility] [address] [place] [address] XRay Report Signed Patient: NATHAN FRIED MR#: [id number] : 1970 Acct:[id number] Age/Sex: 51 / F ADM Date: 12/21/21 Loc: ED Attending Dr: Ordering Physician: EDUARDO GONSALEZ NP Date of Service: 12/21/21 Procedure(s): XR chest routine 2V Accession Number(s): [id number] cc: EDUARDO GONSALEZ NP Fluoro Time In Minutes: CHEST 2 VIEWS INDICATION / CLINICAL INFORMATION: cough STUDY TIME: 1155 COMPARISON: None available. FINDINGS: SUPPORT DEVICES: None. HEART / MEDIASTINUM: No significant abnormality. LUNGS / PLEURA: No significant acute pulmonary or pleural abnormality. No pneumothorax. ADDITIONAL FINDINGS: No significant additional findings. Signer Name: Eugenio Larose MD Signed: 12/21/2021 12:03 PM Workstation Name: [id number] Transcribed By: GJ Dictated By: Eugenio Larose MD Electronically Authenticated By: Eugenio Larose MD Signed Date/Time: 12/21/21 1203 DD/ 1202 TD/TT: - Medical Decision Making This is a 51-year-old female that presents with viral bronchitis. Patient is stable and was examined by me. Chest x-ray has been obtained and dictated by radiologist with normal exam. Patient is notified of x-ray results with no questions noted. Patient does not meet clinical concerns of COVID-19 but patient was instructed and educated on signs and symptoms and to self quarantine and seek medical attention as soon as possible if symptoms does occur. Patient was instructed to increase hydration, rest and take Motrin for fever episodes. Vitals stable. Patient is nonfebrile and normal heart rate. Patient was instructed Follow-up with a primary care doctor in 3-5 days or if symptoms worsen and continue return to emergency room as soon as possible. At time time of discharge, the patient does not seem toxic or ill in appearance. No acute signs of distress noted. Patient agrees to discharge treatment plan of care. No further questions noted by the patient.nt. Critical care attestation.: If time is entered above; I have spent that time in minutes in the direct care of this critically ill patient, excluding procedure time. ED Disposition Clinical Impression: Viral bronchitis Disposition: 01 HOME / SELF CARE / HOMELESS Is pt being admited?: No Does the pt Need Aspirin: No Condition: Stable Instructions: Chronic Bronchitis (ED), Acute Bronchitis, Adult, [id number] Additional Instructions: Follow-up with a primary care doctor in 3-5 days or if symptoms worsen and continue return to emergency room as soon as possible. Prescriptions: Benzonatate [Tessalon Perles] 100 mg PO Q8HR PRN #12 tab PRN Reason: Cough Referrals: PRIMARY CAREMD [Referring] - 3-5 Days BRISEIDA GREEN MD [Primary Care Provider] - 3-5 Days Time of Disposition: 13:01
[2021-12-21 13:09] VITALS: BP 172/86
== END 2021-12-21 13:08 | disposition home or self-care (01) ==
LOC: ED 10:32
DX: J34.89 Other specified disorders of nose and nasal sinuses (principal); J20.8 Acute bronchitis due to other specified organisms; I10 Essential (primary) hypertension; E11.9 Type 2 diabetes mellitus without complications
CPT/HCPCS: 71046; 99283